=== PATIENT | female | born 1980 | race Two or more races ===

== ENCOUNTER 2025-03-01 18:58 | Inpatient (IN) | payer MEDICAID, SELFPAY ==
[2025-03-01] VITALS (9 sets, daily range): BP systolic 106–146; BP diastolic 72–95; PULSE 88–140; RESP 18–24; TEMP 36.9–39.3; O2SAT 97–99; BMI 27.2
--- NOTE | 2025-03-01 19:22 | XR_ITS ---
Examination: PA lateral chest 2 views Technique: Upright PA lateral chest 2 views Exam date and time: March 01, 20252003 hrs. Indications: Shortness of breath fever sepsis today Findings: Mild prominence left ventricle No pneumonia or pulmonary edema Moderate osteopenia Impression: No pneumonia or pulmonary edema
--- NOTE | 2025-03-01 19:22 | EKG_ITS ---
[facility] Test Date: 2025-03-01 Pat Name: JENNI HOWARD Department: Room: - Gender: Female Contribution Solicitor: : 1980 Requested By: Antonino Vargas Order Number: [id number] Reading MD: Antonino Vargas Measurements Intervals Hernandez Rate: 139 P: 53 TX: 126 QRS: 17 QRSD: 81 T: 23 QT: 314 QTc: 478 Interpretive Statements SINUS TACHYCARDIA MODERATE ST DEPRESSION [0.05+ mV ST DEPRESSION] Compared to ECG 02/09/2019 13:28:25 ST (T wave) deviation now present Sinus rhythm no longer present /store/S0/[id number]/[id number]
--- NOTE | 2025-03-01 19:27 | EDRME_ITS ---
Rapid Medical Screening Exam RME Arrival date/time: 03/01/25 18:58 45 yo f present to ED for c/o sob, headache, heart palpitation. had some alcohol at [place]. I have greeted and performed a focused initial assessment of this patient. A comprehensive ED assessment and evaluation of the patient, analysis of all test results, and completion of the medical decision making process will be conducted by additional ED providers. Chief Complaint: Dizziness Time Seen by Provider: 03/01/25 19:17 Vital signs: Vital Signs Temperature 102.8 F H 03/01/25 19:21 Pulse Rate 140 H 03/01/25 19:21 Respiratory Rate 20 03/01/25 19:21 Blood Pressure 145/92 H 03/01/25 19:21 Pulse Oximetry (%) 98 03/01/25 19:21 Oxygen Delivery Method CPAP 03/01/25 19:21
[2025-03-01] MEDS: ACETAMINOPHEN 500 MG TABLET 1000 MG PO (19:34)
[2025-03-01 19:45] LABS: Collection Type, Urine Clean Catch
[2025-03-01 19:53] LABS: Bilirubin,Urine Negative (Negative); Blood,Urine Negative (Negative); Clarity,Urine Clear (Clear/Hazy); Color,Urine Lt-Yellow (Lt Yel-Yel); Glucose, Urine 4+ (Negative); Ketones,Urine Trace (Negative); Leukocyte Esterase,Urine Negative (Negative); Nitrite,Urine Negative (Negative); PH,Urine 5.5 (5.0-7.0); Protein,Urine Negative (Neg - Trace); RBC,Urine 1 /hpf (0-3); Specific Gravity,Urine 1.019 (1.001-1.035); Squamous Epithelial Cell,Urine 1 /hpf (0-5); Urobilinogen,Urine Negative mg/dL (0.0-1.0); WBC,Urine 2 /hpf (0-5)
[2025-03-01 20:05] LABS: Lactate (Lactic Acid) 2.4 mMol/L (0.4-2.0)
[2025-03-01 20:06] LABS: Basophils % (Auto) 0 % (0-2.5); Eosinophils # (Auto) 0.1 Thou/mm3 (0.0-0.5); Eosinophils % (Auto) 0 % (0-10); Hematocrit 40.8 % (36.0-46.0); Hemoglobin 14.6 g/dL (12.0-16.0); Immature Granulocytes % (Auto) 1 % (0-0); Immature Granulocytes Auto 0.09 Thou/mm3 (0.00-0.00); Lymphocytes # (Auto) 1.3 Thou/mm3 (1.0-4.8); Lymphocytes % (Auto) 8 % (10-50); Mean Corpuscular HGB Conc 35.8 g/dl (31.0-37.0); Mean Corpuscular Hemoglobin 28.6 pg (25.0-35.0); Mean Corpuscular Volume 80 fL (80-100); Monocytes # (Auto) 0.7 Thou/mm3 (0.0-0.8); Monocytes % (Auto) 4 % (0-12); Neutrophils % (Auto) 87 % (37-80); Nucleated Red Blood Cell % 0 /100 WBC (0); Platelet Count 300 Thou/mm3 (140-440); White Blood Count 17.2 Thou/mm3 (3.6-11.0)
[2025-03-01 20:21] LABS: Partial Thromboplastin Time 27.1 Seconds (22.0-36.0); Prothrombin Time 11.4 Seconds (9.0-12.2)
[2025-03-01 20:29] LABS: B-Type Natriuretic Peptide < 20 pg/mL (0-100)
--- NOTE | 2025-03-01 20:40 | PD.EDDIZZY ---
ED Dizzyness RME/HPI General Chief Complaint: Dizziness Stated Complaint: DIZZY, HEART IS BEATING FAST , HEADACHE Time Seen by Provider: 03/01/25 19:17 Arrival date/time: 03/01/25 18:58 RME / HPI RME / HPI Narrative: 03/01/25 18:58 45 yo f present to ED for c/o sob, headache, heart palpitation. had some alcohol at [employer]. I have greeted and performed a focused initial assessment of this patient. A comprehensive ED assessment and evaluation of the patient, analysis of all test results, and completion of the medical decision making process will be conducted by additional ED providers. This section includes all my notes and documentations, including HPI, PE, and ED course. Chris Ahuja MD HPI: 45 y/o female with Hx of Blood Transfusions, Chemotherapy, Radiation Therapy, Cervical Cancer (remission for almost 10 years) and SHx of Hysterectomy and Section (X3) presents to ED c/o dizziness, intermittent fever, cough, and heart palpitations x approximately 24 hours. Denies chest pain, abdominal pain, sore throat, or dysuria. Denies any recreational drug use. No other complaints. ROS: All negative except as documented in HPI. Physical Exam: General:? Alert and oriented.? Fever noted. Eyes:? Conjunctivae and lids clear.? EOMI.? PERRL. ENT:? No nasal congestion.? Pharynx normal.? Tympanic membrane normal bilaterally.??? Neck:? Supple.? Heart:? Sinus tachycardia noted. Lungs:? No respiratory distress.? Good air movement.? No rhonchi, wheezing, rales.?? Abdomen:? Soft and nontender.? Normal bowel sounds.? No distension.? No rebound or guarding.?? Back:? No CVA tenderness.?? Legs:? No clubbing, cyanosis, edema.? Skin:? Warm and dry.?? Neuro:? Alert and oriented X 3.? Cranial Nerves II-XII grossly intact.? No peripheral motor deficits. I reviewed all diagnostic test results. My interpretation of the EKG is: Sinus tachycardia (139 bpm) with V1 and V2 ST elevations. Discussed with Dr. Issa. No acute VA. Recommended admission for further care. My interpretation of the chest x-ray is NAD. My review of the chest/abdomen/pelvis CT report is NAD. My interpretation of the gallbladder US report is NAD. Blood tests and urine tests remarkable for WBC 17.2, K 3.1, LA 2.4, Glu 275. Covid/Influenza/RSV negative. At this point, diagnoses include Hyperglycemia, Hypokalemia, Sepsis, Bacteremia, Abnormal EKG. Treatment here included Rocephin, Tylenol, Metoprolol, Zofran, Potassium Chloride, Sodium Chloride (NS), MgSO4. I discussed the case with our food storeroom clerk and our hospitalist. About the presentation and exam and diagnostics and treatments here. And need of further care in the hospital. Will accept the patient. Chris Ahuja MD Related Data Home Medications ?Medication ?Instructions ?Recorded ?Confirmed lorazepam 0.5 mg tablet 0.5 mg PO BID #0 tabs 07/07/16 02/09/19 Previous Rx's ?Medication ?Instructions ?Recorded blood sugar diagnostic (Accutrend #50 ea 03/04/25 Glucose test strips) blood-glucose sensor (FreeStyle #1 ea 03/04/25 Li 3 Plus Sensor device) insulin glargine 100 unit/mL (3 5 unit (0.05 mL) subcut QPM 1 03/04/25 mL) subcutaneous pen (aglar month #1.5 mL KwikPen U-100 Insulin) lancets (Lancets,Ultra Thin) #100 ea 03/04/25 metformin 500 mg tablet 500 mg PO BIDWMEAL 1 month #60 tabs 03/04/25 needle (disp) 32 gauge 32 gauge x #100 ea 03/04/25/16 pen needle, diabetic 29 gauge x #100 ea 03/04/25 1/2 (Pen Needle) Allergies Allergy/AdvReac Type Severity Reaction Status Date / Time No Known Allergies Allergy Verified 03/01/25 19:04 Review of Systems Review of Systems Systems Reviewed: All systems reviewed, normal except as documented Narrative Review of Systems: Refer to HPI above. Past Medical History Past Medical History RESPIRATORY: Positive Pneumonia OTHER HISTORY: Positive Blood Transfusions, Chemotherapy, Radiation Therapy, Cancer and Cervical Cancer ( APPROX. 4 YRS. AGO ) Surgical History SURGICAL: Positive Hysterectomy and Section (X3) ED Exam Narrative Physical exam: Refer to HPI above. Course Quality Measures none Orders Category Date Time Status Bedside COVID-19 Antigen Test NOW Care 03/01/25 19:22 Completed Bedside Influenza A&B Antigen Test NOW Care 03/01/25 19:23 Completed COVID-19 Screening Questionnaire NOW Care 03/02/25 03:[address] Screening NOW Care 03/01/25 22:10 Completed Appliance Servicer STAT Care 03/01/25 19:22 Completed Continuous Pulse Oximetry STAT Care 03/01/25 19:22 Completed Decision to Admit X1 Care 03/02/25 03:30 Completed EKG (ED ONLY) *Do not use* NOW Care 03/01/25 19:22 Completed EKG (ED ONLY) *Do not use* NOW Care 03/01/25 21:55 Completed Insert IV NOW Care 03/01/25 19:22 Completed NPO STAT Care 03/01/25 19:22 Completed Strict Intake and Output Routine Care 03/01/25 19:22 Ordered Consult to Cardiology Stat Cons 03/01/25 22:[address] chest abdomen pelvis w Stat Exams 03/01/25 22:10 Completed EKG (ED Only) Stat Exams 03/01/25 19:22 Draft EKG (ED Only) Stat Exams 03/01/25 21:55 Draft US gall bladder Stat Exams 03/01/25 22:11 Completed XR chest 2V Stat Exams 03/01/25 19:22 Completed Alcohol, Blood Medical Stat Lab 03/01/25 19:40 Completed B-Type Natriuretic Peptide Stat Lab 03/01/25 19:40 Completed Blood Culture (Lab) Stat Lab 03/01/25 19:40 Results C-Reactive Protein Stat Lab 03/01/25 19:40 Completed CBC Stat Lab 03/01/25 19:40 Completed Comprehensive Metabolic Panel Stat Lab 03/01/25 19:40 Completed D-Dimer Stat Lab 03/01/25 19:40 Completed Drug Screen,Urine Stat Lab 03/01/25 19:38 Completed Free T4 (Free Thyroxine) Stat Lab 03/01/25 19:40 Completed HCG,Qualitative Serum Stat Lab 03/01/25 19:40 Completed Hemoglobin A1C [Glycohemoglobin w (eAG)] Stat Lab 03/02/25 00:00 Completed LDH (Lactate Dehydrogenase) Stat Lab 03/01/25 19:40 Completed Lactate (Lactic Acid) Stat Lab 03/01/25 19:40 Completed Lactic Acid, 3 HR Stat Lab 03/01/25 23:07 Completed Lipase Stat Lab 03/01/25 19:40 Completed Magnesium Stat Lab 03/01/25 19:40 Completed Partial Thromboplastin Time Stat Lab 03/01/25 19:40 Completed Phosphorous Stat Lab 03/01/25 19:40 Completed Procalcitonin Stat Lab 03/01/25 19:40 Completed Prothrombin Time with INR Stat Lab 03/01/25 19:40 Completed Sed Rate (ESR) Stat Lab 03/01/25 19:40 Completed Thyroid Stimulating Hormone Stat Lab 03/01/25 19:40 Completed Troponin I Stat Lab 03/01/25 19:40 Completed Urinalysis Stat Lab 03/01/25 20:42 Ordered Urine Culture Stat Lab 03/01/25 19:38 Completed Acetaminophen Tab [Tylenol ES Tab] Med 03/01/25 19:22 Discontinued 1,000 mg PO X1 ONE Insulin Regular Med 03/02/25 03:32 Discontinued 5 unit SC X1 ONE KCL 10% Liq UDC 15 ML Med 03/01/25 21:39 Discontinued 40 meq PO X1 ONE Ketorolac Inj [Toradol Inj] Med 03/01/25 19:50 Discontinued 30 mg IVP X1 ONE Magnesium Sulfate 1 gm Ivpb [Magnesium Sulfate Ivpb] Med 03/01/25 21:39 Discontinued 1 gm in 100 ml IV X1 Metoprolol Tartrate [Lopressor] Med 03/01/25 20:02 Discontinued 50 mg PO X1 ONE Ondansetron Inj [Zofran Inj] Med 03/01/25 20:40 Discontinued 4 mg IV X1 ONE Sodium Chloride 0.9% 1000 ml [Ns] 1,000 ml Med 03/01/25 19:23 Discontinued IV 999 mls/hr Sodium Chloride 0.9% 1000 ml [Ns] 1,000 ml Med 03/01/25 20:39 Discontinued IV 999 mls/hr cefTRIAXone [Rocephin] 1,000 mg Med 03/01/25 20:40 Discontinued SODIUM CHLORIDE 0.9% (Popper) [Ns 0.9% (P)] 50 ml IV X1 Vital Signs Vital signs: Vital Signs Temperature 102.8 F H 03/01/25 19:21 Pulse Rate 140 H 03/01/25 19:21 Respiratory Rate 20 03/01/25 19:21 Blood Pressure 145/92 H 03/01/25 19:21 Pulse Oximetry (%) 98 03/01/25 19:21 Oxygen Delivery Method Room Air 03/01/25 19:21 Dizziness MDM Narrative MDM Narrative:: Scribe Attestation: I, Bere Perez, am scribing for and in the presence of Dr. Ahuja. Provider Notation: Although this document has been carefully reviewed, there may still be some phonetic and other typographical errors. These errors are purely grammatical due to imperfections in the software program and should not be construed in any way to compromise the substance of the patient's medical care during this visit. 45 y/o female with Hx of Blood Transfusions, Chemotherapy, Radiation Therapy, Cervical Cancer and SHx of Hysterectomy and Section (X3) presents to ED c/o dizziness, intermittent fever, cough, and heart palpitations x approximately 24 hours. Patient took an allergy medication, nasal spray, and an energy drink yesterday prior to symptoms. Denies chest pain, abdominal pain, sore throat, or dysuria. Denies any recreational drug use. Patient data External records reviewed:: [facility] previous records (Prior ED records reviewed from 11/17/21. Patient was seen for Cyst of right ovary.) Clinical information provided by:: patient Social determinants that could affect healthcare access:: none Patient has the following chronic illnesses:: Blood Transfusions, Chemotherapy, Radiation Therapy, Cervical Cancer How is presenting disease/condition affected by chronic disease/condition?: exacerbated by Evaluation data The following diagnostics were reviewed and interpreted by me:: lab results, radiology exam(s) and EKG tracing(s) (My interpretation of the EKG is: Sinus tachycardia (139 bpm) with V1 and V2 ST elevations. Discussed with Dr. Issa. No acute VA.recommended admission for further care. Chris Ahuja MD) Lab and/or radiology exams considered but not ordered:: None Interpretation Summary: I reviewed all diagnostic test results. My interpretation of the EKG is: Sinus tachycardia (139 bpm) with V1 and V2 ST elevations. Discussed with Dr. Issa. No acute VA. Recommended admission for further care. My interpretation of the chest x-ray is NAD. My review of the chest/abdomen/pelvis CT report is NAD. My interpretation of the gallbladder US report is NAD. Blood tests and urine tests remarkable for WBC 17.2, K 3.1, LA 2.4, Glu 275. Covid/Influenza/RSV negative. Medications / Prescriptions Medications or Prescriptions considered but not ordered:: None Medication administrations:: Medication Administration History Discontinued Medications Acetaminophen (Acetaminophen 500 Mg Tablet) 1,000 mg PO X1 ONE Stop: 03/01/25 19:23 Last Admin: 03/01/25 19:34 Dose: 1,000 mg Documented By: MREI Acetaminophen (Acetaminophen 325 Mg Tablet) 650 mg PO Q6H PRN PRN Reason: Fever >101.5 Stop: 04/01/25 04:06 Last Admin: 03/02/25 17:35 Dose: 650 mg Documented By: Admin: 03/02/25 04:49 Dose: 650 mg Documented By: HARDY Acetaminophen (Acetaminophen 325 Mg Tablet) 650 mg PO Q6H PRN PRN Reason: PAIN SCALE 1-3 (mild Stop: 04/01/25 04:06 Acetaminophen (Acetaminophen 325 Mg Tablet) 650 mg PO Q6H PRN PRN Reason: Fever >100.4 Stop: 04/01/25 04:06 Dextrose (Dextrose 50%-Water Inj 50 Ml Syringe) 25 ml IV Q15MIN PRN PRN Reason: BG 50-70 responsive npo pt Stop: 04/01/25 04:06 Dextrose (Dextrose 50%-Water Inj 50 Ml Syringe) 50 ml IV Q15MIN PRN PRN Reason: BG <50 OR BG <70 & pt unresponsive Stop: 04/01/25 04:06 Enoxaparin Sodium (Enoxaparin Sod Inj 40 Mg/0.4 Ml Syringe) 40 mg SC QDAY ISREAL Stop: 03/16/25 08:59 Last Admin: 03/04/25 08:28 Dose: 40 mg Documented By: Admin: 03/03/25 08:31 Dose: 40 mg Documented By: Admin: 03/02/25 10:08 Dose: Not Given Documented By: BATSHEVA Non-Admin Reason: Patient Refused Glucagon (Glucagon Inj 1 Mg Vial) 1 mg IM Q15MIN PRN PRN Reason: BG <70, and no IV access Sodium Chloride (Ns) 1,000 mls @ 999 mls/hr IV .Q1H1M ONE Stop: 03/01/25 20:23 Last Infusion: 03/01/25 22:36 Dose: Infused Documented By: Admin: 03/01/25 20:46 Dose: 999 mls/hr Documented By: EE Sodium Chloride (Ns) 1,000 mls @ 999 mls/hr IV .Q1H1M ONE Stop: 03/01/25 21:39 Last Infusion: 03/01/25 22:36 Dose: Infused Documented By: Admin: 03/01/25 20:54 Dose: 999 mls/hr Documented By: EE Ceftriaxone Sodium 1,000 mg/ (Sodium Chloride) 50 mls @ 100 mls/hr IV X1 ONE Stop: 03/01/25 21:09 Last Infusion: 03/01/25 21:35 Dose: Infused Documented By: Admin: 03/01/25 20:53 Dose: 100 mls/hr Documented By: EE Magnesium Sulfate/Dextrose (Magnesium Sulfate Ivpb) 1 gm in 100 mls @ 100 mls/hr IV X1 ONE Stop: 03/01/25 22:38 Last Infusion: 03/01/25 23:32 Dose: Infused Documented By: Admin: 03/01/25 22:32 Dose: 100 mls/hr Documented By: EE Piperacillin/Tazobactam/Dextrose (Zosyn) 50 mls @ 100 mls/hr IV Q6HR ISREAL Stop: 03/09/25 04:11 Piperacillin/Tazobactam/Dextrose (Zosyn) 3.375 gm in 50 mls @ 12.5 mls/hr IV Q8HR ISREAL Stop: 03/09/25 13:59 Magnesium Sulfate (Magnesium Sulfate Ivpb) 4 gm in 50 mls @ 12.5 mls/hr IV X1 ONE Stop: 03/02/25 08:15 Last Infusion: 03/02/25 10:08 Dose: Infused Documented By: Admin: 03/02/25 04:53 Dose: 12.5 mls/hr Documented By: EE Potassium Phosphate (Pot Phos 15 Mmol In Ns 250 Ml) 15 mmol in 250 mls @ 62.5 mls/hr IV Q4H ISREAL Stop: 03/02/25 14:14 Piperacillin/Tazobactam/Dextrose (Zosyn) 3.375 gm in 50 mls @ 100 mls/hr IV X1 ONE Stop: 03/02/25 04:59 Last Infusion: 03/02/25 05:33 Dose: Infused Documented By: Admin: 03/02/25 04:37 Dose: 100 mls/hr Documented By: HARDY Vancomycin/Sodium Chloride (Vancomycin/Ns 1 Gm Ivpb) 200 mls @ 200 mls/hr IV X1 ONE Stop: 03/02/25 05:29 Last Infusion: 03/02/25 10:08 Dose: Infused Documented By: Admin: 03/02/25 04:52 Dose: 200 mls/hr Documented By: HARDY Potassium Phosphate (Pot Phos 15 Mmol In Ns 250 Ml) 15 mmol in 250 mls @ 62.5 mls/hr IV Q4H ISREAL Stop: 03/02/25 15:29 Last Infusion: 03/02/25 17:59 Dose: Infused Documented By: Admin: 03/02/25 13:09 Dose: 62.5 mls/hr Documented By: Infusion: 03/02/25 13:05 Dose: Infused Documented By: Admin: 03/02/25 08:39 Dose: 62.5 mls/hr Documented By: BATSHEVA Vancomycin/Sodium Chloride (Vancomycin/Ns 1 Gm Ivpb) 200 mls @ 120 mls/hr IV Q12H ISREAL Stop: 03/09/25 21:59 Ceftriaxone Sodium 1 gm/ (Sodium Chloride) 50 mls @ 100 mls/hr IV QDAY ISREAL Stop: 03/10/25 08:59 Potassium Chloride (Kcl Ivpb) 10 meq in 100 mls @ 100 mls/hr IV Q1H ISREAL Stop: 03/02/25 19:28 Last Infusion: 03/02/25 18:39 Dose: Infused Documented By: Admin: 03/02/25 17:58 Dose: Not Given Documented By: BATSHEVA Non-Admin Reason: Discontinued Admin: 03/02/25 17:58 Dose: Not Given Documented By: BATSHEVA Non-Admin Reason: Discontinued Admin: 03/02/25 17:35 Dose: 100 mls/hr Documented By: BATSHEVA Potassium Phosphate (Pot Phos 15 Mmol In Ns 250 Ml) 15 mmol in 250 mls @ 62.5 mls/hr IV X1 ONE Stop: 03/03/25 12:02 Last Infusion: 03/03/25 19:09 Dose: Infused Documented By: Admin: 03/03/25 08:31 Dose: 62.5 mls/hr Documented By: ADELINA Ceftriaxone Sodium/Dextrose (Rocephin/D5w 1gm Iv Premix) 1 gm in 50 mls @ 100 mls/hr IV QDAY ISREAL Stop: 03/10/25 08:59 Last Admin: 03/04/25 08:25 Dose: 100 mls/hr Documented By: Infusion: 03/03/25 19:08 Dose: Infused Documented By: Admin: 03/03/25 08:30 Dose: 100 mls/hr Documented By: ADELINA Insulin Glargine (Insulin Glargine (Lantus) 5 Unit/0.05 Ml (Per 5 Units)) 5 unit SC QDAY ISREAL Stop: 04/02/25 08:59 Insulin Glargine (Insulin Glargine (Lantus) 5 Unit/0.05 Ml (Per 5 Units)) 3 unit SC QDAY ISREAL Stop: 04/02/25 08:59 Last Admin: 03/04/25 08:27 Dose: 3 unit Documented By: BENOIT Co-signed By: Admin: 03/03/25 08:31 Dose: 3 unit Documented By: ADELINA Co-signed By: CARMEN Insulin Human Lispro (Insulin Lispro (Admelog) 1 Unit/0.01 Ml Unit) 0 unit SC AC [facility]; Protocol Stop: 04/01/25 07:29 Last Admin: 03/04/25 18:16 Dose: 2 unit Documented By: BENOIT Co-signed By: MARISA Admin: 03/04/25 11:59 Dose: Not Given Documented By: BENOIT Non-Admin Reason: Patient Refused Admin: 03/04/25 08:23 Dose: 2 unit Documented By: BENOIT Co-signed By: Admin: 03/03/25 17:29 Dose: 1 unit Documented By: ADELINA Co-signed By: PARI Admin: 03/03/25 11:26 Dose: 2 unit Documented By: ADELINA Co-signed By: CARMEN Admin: 03/03/25 08:30 Dose: 1 unit Documented By: ADELINA Co-signed By: CARMEN Admin: 03/02/25 17:34 Dose: Not Given Documented By: BATSHEVA Non-Admin Reason: Per Protocol Admin: 03/02/25 12:38 Dose: Not Given Documented By: BATSHEVA Non-Admin Reason: Per Protocol Admin: 03/02/25 07:55 Dose: Not Given Documented By: BATSHEVA Non-Admin Reason: Per Protocol Insulin Human Regular (Insulin Hum Regular 1 Unit/0.01 Ml (Per Unit)) 5 unit SC X1 ONE Stop: 03/02/25 03:33 Last Admin: 03/02/25 03:53 Dose: 5 unit Documented By: HARDY Co-signed By: TERRY Ketorolac Tromethamine (Ketorolac Inj 30 Mg/Ml Vial) 30 mg IVP X1 ONE Stop: 03/01/25 19:51 Last Admin: 03/01/25 20:46 Dose: 30 mg Documented By: HARDY Metoprolol Tartrate (Metoprolol Tartrate 25 Mg Tablet) 50 mg PO X1 ONE Stop: 03/01/25 20:03 Last Admin: 03/01/25 20:47 Dose: 50 mg Documented By: HARDY Ondansetron HCl (Ondansetron Inj 2 Mg/Ml Inj 2 Ml) 4 mg IV X1 ONE; Protocol Stop: 03/01/25 20:41 Last Admin: 03/01/25 20:53 Dose: 4 mg Documented By: HARDY Pharmacy Consult (Vancomycin Pharmacy To Dose 1 Each Each) 1 each IV QDAY ISREAL Stop: 04/01/25 08:59 Pharmacy Consult (Vancomycin Pharmacy To Dose 1 Each Each) 1 each IV Q24H PRN PRN Reason: CONSULT Stop: 04/01/25 04:14 Potassium Chloride (Potassium Chloride 10% 20 Meq/15 Ml Udc) 40 meq PO X1 ONE Stop: 03/01/25 21:40 Last Admin: 03/01/25 22:32 Dose: 40 meq Documented By: HARDY Potassium Chloride (Potassium Chloride 10% 20 Meq/15 Ml Udc) 40 meq PO X1 ONE Stop: 03/02/25 17:44 Last Admin: 03/02/25 18:09 Dose: 40 meq Documented By: BATSHEVA Potassium Chloride (Potassium Chloride 20 Meq Tabcr) 20 meq PO X1 ONE Stop: 03/02/25 19:01 Last Admin: 03/02/25 18:30 Dose: 20 meq Documented By: BATSHEVA From ut, she received Rocephin, Tylenol, Metoprolol, Zofran, Potassium Chloride, Sodium Chloride (NS), MgSO4 in the ER. Consultations Consultation(s) initiated? (list below): Yes Consultation #1 (Physician, Specialty, Details): I discussed the case with our food storeroom clerk. About the presentation and exam and diagnostics and treatments here. And need of further care in the hospital. Recommended admission for further care. Time: 03:31 Diagnosis Dizziness Differential Diagnosis: adverse reaction to drug, benign paroxysmal positional vertigo, orthostatic hypotension, vertebral basilar insufficiency, cerebrovascular accident, acute vestibular neuronitis, transient cerebral ischemia and other (UTI, Pneumonia, Sepsis) Most likely diagnosis given after review of the tests above:: Sepsis, bacteremia, abnormal EKG, Hyperglycemia, Hypokalemia Admission Indicated Admission indicated?: indicated Explain why admission is indicated or not indicated:: Further evaluation and treatment for: sepsis, bacteremia, abnormal EKG. Admission Request Was there a request for admission?: Yes Admission Attestation Admission request attestation: Discussed case with Hospitalist service regarding admission. Discussed patients ED course, exam findings, labs, and radiology results. The Hospitalist [agrees] to accept the patient for admission. Disposition Plan Disposition Plan: Admit Discharge Plan Plan Patient Disposition: Admit Acute Care w/in Hospital Patient condition on transfer: Stable Problem List Clinical Impression: Sepsis, Bacteremia, Abnormal EKG, Hypokalemia, Hyperglycemia Patient/Caregiver Discharge Instructions Discharge Activity: activity as tolerated
[2025-03-01 20:45] LABS: HCG,Qualitative Serum Negative
[2025-03-01] MEDS: KETOROLAC INJ 30 MG/ML VIAL IVP (20:46)
[2025-03-01] MEDS: SODIUM CHLORIDE 0.9% 1000 ML 1,000 ML 999 ML IV ×2 (20:46→20:54)
[2025-03-01] MEDS: METOPROLOL TARTRATE 25 MG TABLET 50 MG PO (20:47)
[2025-03-01] MEDS: ONDANSETRON INJ 2 MG/ML INJ 2 ML 4 MG IV (20:53)
[2025-03-01] MEDS: cefTRIAXone 1,000 MG in SODIUM CHLORIDE 0.9% (Popper) 50 ML 100 MG IV (20:53)
[2025-03-01 21:20] LABS: Sed Rate (ESR) 22 mm/hr (0-20)
[2025-03-01 21:36] LABS: Alanine Aminotransferase 31 U/L (10-49); Albumin, Serum 4.7 gm/dL (3.5-5.0); Albumin/Globulin Ratio 1.7 (1.2-2.2); Alkaline Phosphatase 137 U/L (46-116); Anion Gap 12 (7-16); Aspartate Amino Transferase 22 U/L (0-34); BUN/Creatinine Ratio 13 Ratio (12-20); Bilirubin,Total 0.5 mg/dL (0.3-1.2); Blood Urea Nitrogen 13 mg/dL (9-23); C-Reactive Protein 2.4 mg/dL (0.0-0.9); Calcium 9.4 mg/dL (8.3-10.6); Calcium (Corrected) 9.4 mg/dL (8.5-10.1); Carbon Dioxide 23.2 mMol/L (20.0-31.0); Chloride 102 mMol/L (98-107); Estimated Creatinine Clearance 78.7 mL/min (>60); Free T4 (Free Thyroxine) 1.09 ng/dL (0.89-1.76); Globulin 2.8 gm/dL (2.3-3.5); Glucose 275 mg/dL (74-106); LDH (Lactate Dehydrogenase) 273 U/L (120-246); Lipase 40 U/L (12-53); Magnesium 1.6 mg/dL (1.6-2.6); Osmolality,Calculated 283 (275-295); Phosphorous 1.9 mg/dL (2.4-5.1); Potassium 3.1 mMol/L (3.4-5.1); Procalcitonin 0.32 ng/ml (0.0-0.49); Sodium 137 mMol/L (136-145); Thyroid Stimulating Hormone 2.13 uIU/mL (0.55-4.78); Total Protein 7.5 gm/dL (5.7-8.2); Troponin I < 0.002 ng/mL (0.0-0.045); eGFR > 60 See Note
[2025-03-01 21:41] LABS: D-Dimer 391 ng/mL (<600)
[2025-03-01 21:55] LABS: Alcohol, Blood Medical < 3.0 mg/dL (0-10.0)
--- NOTE | 2025-03-01 21:55 | EKG_ITS ---
[facility] Test Date: 2025-03-01 Pat Name: JENNI HOWARD Department: Room: - Gender: Female Family Medicine Physician Assistant: : 1980 Requested By: Chris Sanford Order Number: [id number] Reading MD: Chris Sanford Measurements Intervals [place] Rate: 98 P: 42 NH: 100 QRS: 22 QRSD: 97 T: 20 QT: 367 QTc: 469 Interpretive Statements SINUS RHYTHM WITH SHORT NH INTERVAL NONSPECIFIC T-WAVE ABNORMALITY Compared to ECG 03/01/2025 19:29:13 Short NH interval now present T-wave abnormality now present Sinus tachycardia no longer present ST (T wave) deviation no longer present /store/S0/[id number]/[id number]
--- NOTE | 2025-03-01 22:10 | XR_ITS ---
Examination: CT chest with intravenous contrast CT abdomen with intravenous contrast CT pelvis with intravenous contrast 2-D coronal and sagittal reconstructions Time of exam: March 02, 2025 at 0041 hours INDICATIONS: Diagnosis malignant vaginal cancer, tachycardia, headaches fever abdominal and chest pain today CTDI: vol (mGy) : 8.24 DLP: (mGycm): 591 Technique: Multiple axial images of the chest, abdomen and pelvis with intravenous contrast, 3.0 mm slice thickness. Images obtained post intravenous injection Isovue 370 60 cc. 2-D sagittal and coronal reconstructions. Low dose protocols were performed. One or more of the following dose reduction techniques were used; automated exposure control, adjustment of the mA and/or KV according to patient size, use of iterative reconstruction technique. Findings: Thoracic aorta pulmonary arteries intact No pulmonary artery emboli on this non-CTA study No paratracheal tracheobronchial or bronchopulmonary adenopathy 2 mm pulmonary nodule lingular segment image 157 Fatty infiltration throughout the liver no focal liver or splenic lesions Contracted gallbladder No pancreatic or adrenal mass Mild bilateral renal parenchymal scar formation Mild right hydronephrosis with mild wall thickening right ureter No bowel obstruction Normal appendix No diverticulitis Absent uterus No bladder mass Thickening of the umbilical tract with skin lesion 18 mm IMPRESSION: 2 mm pulmonary nodule lingular segment left upper lobe, with this study as baseline recommend 6 month follow-up CT chest to exclude early pulmonary nodular metastatic disease Bilateral renal parenchymal scar formation Findings most consistent with right urinary tract infection Recommend ultrasound follow-up to assess umbilical skin lesion
--- NOTE | 2025-03-01 22:11 | XR_ITS ---
Examination: Abdomen sonogram, Limited Date and time of exam: March 01, 2025 1114 hrs. Indications: Right upper abdominal tenderness today Technique: Real-time carballo scale transabdominal sonographic images of the upper abdomen obtained. Findings: Contracted gallbladder Common bile duct 0.42 cm Pancreatic head 3.2 cm Liver 18 cm fatty infiltration Normal hepatopedal portal venous flow Patent IVC Impression: Recommend repeating the gallbladder portion of this study with fasting
[2025-03-01] MEDS: POTASSIUM CHLORIDE 10% 20 MEQ/15 ML UDC 40 MEQ PO (22:32)
[2025-03-01] MEDS: Magnesium Sulfate 1 gm Ivpb 1 GM/100 ML BAG IV (22:32)
[2025-03-01 22:45] LABS: Amphetamine/Methamp Scrn,U Negative (Negative); Barbiturate Screen,Urine Negative (Negative); Benzodiazepines Screen,Urine Negative (Negative); Benzoylecgonine Screen, Ur Negative (Negative); Fentanyl Screen,Urine Negative (Negative); Opiate Screen,Urine Negative (Negative)
[2025-03-01 22:47] LABS: THC Screen,Urine Negative (Negative)
[2025-03-01 22:52] LABS: Reflex Lactate? Y
[2025-03-01 23:28] LABS: Lactic Acid, 3 HR 1.3 mMol/L (0.4-2.0)
[2025-03-02] VITALS (16 sets, daily range): BP systolic 113–146; BP diastolic 71–98; PULSE 82–106; RESP 13–19; TEMP 36.2–39.5; O2SAT 96–100
--- NOTE | 2025-03-02 01:56 | PRELIM_ITS ---
CT scan of the chest, abdomen and pelvis with intravenous contrast (axial sections with sagittal and coronal reformats) March 02, 2025 at 0041 hours Clinical History: Fever and pain (history of [facility] cancer) Reference is made to the prior CT Abdomen and Pelvis report dated November 17, 2021. Findings: Bibasilar streaky atelectasis is present. There is no pleural effusion or pneumothorax. The aorta is unremarkable without evidence of dissection or aneurysm. No evidence of mediastinal mass or lymphadenopathy. There is no pericardial effusion.Surgical clips are noted in the right breast. There is fatty infiltration of the liver. The gallbladder is partially distended. Mild right hydroureteronephrosis No ureteric calculus is currently seen. The spleen, pancreas, adrenals and left kidney are unremarkable. T No evidence of bowel dilatation. The appendix is within normal limits. The urinary bladder is not well distended with apparent wall thickening. There is no free fluid or air. The osseous structures are unremarkable. This is a homogenously enhancing superficial cutaneous lesion in the umbilical region, measuring 2 x 2.1 x 2.8 cm (AP x TR x CC) of uncertain clinical significance. Impression: Mild right hydroureteronephrosis No ureteric calculus is currently seen. Differential considerations include recently passed calculus versus urinary infection. Recommend clinical correlation. Probable cystitis. Recommend clinical and laboratory correlation. Homogenously enhancing superficial cutaneous lesion in the umbilical region of uncertain clinical significance. Recommend clinical correlation. Other findings as described above. Report Electronically Signed By: Terell Duggan 03/02/2025 1:56:02 AM [EST]
[2025-03-02] MEDS: INSULIN HUM REGULAR 1 UNIT/0.01 ML (PER UNIT) 5 UNIT SC (03:53)
--- NOTE | 2025-03-02 04:19 | PD.RESHP ---
Documentation for date of: 03/02/25 [facility] History of Present Illness History of present illness: The patient is a 45-year-old female with significant past medical history of vaginal cancer in 2016, currently in remission, unknown about any other past medical history presented with chief complaint of fever, mild headache and palpitation that started on the morning of presentation. She reported that she had some energy drink, and after which her palpitation increased. She denied any sick contact, sore throat, nasal congestion, cough, chest pain, SOB, abdominal pain, any changes in bowel or bladder habit, denying any urinary frequency, burning micturition or dysuria. She also denied any nausea or vomiting, chills or leg swelling. In the ED her vitals were significant for BP 145/92, pulse 140, temperature 102.8, white count 17.2, RDW 36.0, ESR 22, potassium 3.1, blood sugar 275, lactic acid 2.4, phosphorus 1.9, ALP 137, LDH 237, troponin negative, CRP 2.4, Pro-Reyes negative, TSH and free T4 WNL, UA revealed 4+ glucose otherwise negative, U tox negative, CXR negative for any pneumonia, EKG revealed sinus tachycardia with moderate ST depression, chest/abdomen/pelvis CT was negative, gallbladder ultrasound was negative. [employer] Dr. Issa was consulted, and believes that it is not ACS, recommended admitting the patient, and would see her tomorrow morning. PMH: As mentioned above SHX: Hysterectomy oophorectomy, 3 section around 24 years ago Family history: Unremarkable Social history: Denies any alcohol, tobacco or illicit drug use Medications: Denies any medications use Allergies: No known allergies Patient received 2 L of IV normal saline bolus in the ED, given a seven 1 g p.o. x 1, ceftriaxone 1 g IV x 1, ondansetron 4 mg IV x 1, potassium chloride 40 mEq p.o. x 1, regular insulin subcutaneous x 1 and magnesium sulfate 1 g IV x 1 and admitted to telemetry unit for further management of possible bacteremia. Review of Systems Review of Systems Systems Reviewed: All systems reviewed, normal except as documented Exam Vital Signs Temp Pulse Resp BP Pulse Ox O2 Del Method 98.7 F 90 15 145/92 H 100 Room Air 03/02/25 04:00 03/02/25 04:00 03/02/25 04:00 03/02/25 04:00 03/02/25 04:00 03/02/25 04:00 Narrative Exam General: Middle-aged, well-nourished female, no acute distress, Alert and Oriented x 3 HEENT: Moist mucous membranes, oropharynx clear Neck: Supple, No masses, No JVD CVS: Mild tachycardia, No murmurs, rubs or gallops Lungs: Clear to auscultation with no accessory use, no wheeze no rhonchi Abd: Soft, NT/ND, +BS, no organomegaly, hypertrophic scar kassie in lower central abdomen 2/2 CS Ext: No edema, warm and well perfused Skin: No rash Psych: Appropriate mood and affect Results: Labs 03/01/25 19:40 03/01/25 19:40 Labs: Short CBC 03/01/25 Range/Units 19:40 WBC 17.2 H (3.6-11.0) Thou/mm3 Hgb 14.6 (12.0-16.0) g/dL Hct 40.8 (36.0-46.0) % Plt Count 300 (140-440) Thou/mm3 BMP 03/01/25 19:40 Sodium 137 Potassium 3.1 L Chloride 102 Carbon Dioxide 23.2 BUN 13 Creatinine 1.0 Glucose 275 H Calcium 9.4 Cardiac Enzymes 03/01/25 Range/Units 19:40 Troponin I < 0.002 (0.0-0.045) ng/mL Liver Function 03/01/25 Range/Units 19:40 Total Bilirubin 0.5 (0.3-1.2) mg/dL AST 22 (0-34) U/L ALT 31 (10-49) U/L Alkaline Phosphatase 137 H (46-116) U/L Albumin 4.7 (3.5-5.0) gm/dL Urine 03/01/25 Range/Units 19:38 Urine Color Lt-Yellow (Lt Yel-Yel) Urine Clarity Clear (Clear/Hazy) Urine pH 5.5 (5.0-7.0) Ur Specific Mcgrew 1.019 (1.001-1.035) Urine Protein Negative (Neg - Trace) Urine Glucose (UA) 4+ A (Negative) Quality Measures Quality Measures none Medications Home Medications and Allergies Home Medications ?Medication ?Instructions ?Recorded ?Confirmed ?Type lorazepam 0.5 mg tablet 0.5 mg PO BID #0 tabs 07/07/16 02/09/19 History Allergies Allergy/AdvReac Type Severity Reaction Status Date / Time No Known Allergies Allergy Verified 03/01/25 19:04 Visit Medications Acetaminophen (Acetaminophen 325 Mg Tablet) 650 mg PO Q6H PRN PRN Reason: Fever >101.5 Stop: 04/01/25 04:06 Acetaminophen (Acetaminophen 325 Mg Tablet) 650 mg PO Q6H PRN PRN Reason: PAIN SCALE 1-3 (mild Stop: 04/01/25 04:06 Dextrose (Dextrose 50%-Water Inj 50 Ml Syringe) 25 ml IV Q15MIN PRN PRN Reason: BG 50-70 responsive npo pt Stop: 04/01/25 04:06 Dextrose (Dextrose 50%-Water Inj 50 Ml Syringe) 50 ml IV Q15MIN PRN PRN Reason: BG <50 OR BG <70 & pt unresponsive Stop: 04/01/25 04:06 Enoxaparin Sodium (Enoxaparin Sod Inj 40 Mg/0.4 Ml Syringe) 40 mg SC QDAY [facility] Stop: 03/16/25 08:59 Glucagon (Glucagon Inj 1 Mg Vial) 1 mg IM Q15MIN PRN PRN Reason: BG <70, and no IV access Piperacillin/Tazobactam/Dextrose (Zosyn) 50 mls @ 100 mls/hr IV Q6H [facility] Stop: 03/09/25 04:14 Magnesium Sulfate (Magnesium Sulfate Ivpb) 4 gm in 50 mls @ 12.5 mls/hr IV X1 ONE Stop: 03/02/25 08:15 Potassium Phosphate (Pot Phos 15 Mmol In Ns 250 Ml) 15 mmol in 250 mls @ 62.5 mls/hr IV Q4H [facility] Stop: 03/02/25 12:15 Insulin Human Lispro (Insulin Lispro (Admelog) 1 Unit/0.01 Ml Unit) 0 unit SC AC [facility]; Protocol Stop: 04/01/25 07:29 Pharmacy Consult (Vancomycin Pharmacy To Dose 1 Each Each) 1 each IV Q24H [facility] Stop: 04/01/25 04:14 Discontinued Medications Acetaminophen (Acetaminophen 500 Mg Tablet) 1,000 mg PO X1 ONE Stop: 03/01/25 19:23 Last Admin: 03/01/25 19:34 Dose: 1,000 mg Sodium Chloride (Ns) 1,000 mls @ 999 mls/hr IV .Q1H1M ONE Stop: 03/01/25 20:23 Last Infusion: 03/01/25 22:36 Dose: Infused Sodium Chloride (Ns) 1,000 mls @ 999 mls/hr IV .Q1H1M ONE Stop: 03/01/25 21:39 Last Infusion: 03/01/25 22:36 Dose: Infused Ceftriaxone Sodium 1,000 mg/ (Sodium Chloride) 50 mls @ 100 mls/hr IV X1 ONE Stop: 03/01/25 21:09 Last Infusion: 03/01/25 21:35 Dose: Infused Magnesium Sulfate/Dextrose (Magnesium Sulfate Ivpb) 1 gm in 100 mls @ 100 mls/hr IV X1 ONE Stop: 03/01/25 22:38 Last Infusion: 03/01/25 23:32 Dose: Infused Piperacillin/Tazobactam/Dextrose (Zosyn) 50 mls @ 100 mls/hr IV Q6HR [facility] Stop: 03/09/25 04:11 Insulin Human Regular (Insulin Hum Regular 1 Unit/0.01 Ml (Per Unit)) 5 unit SC X1 ONE Stop: 03/02/25 03:33 Last Admin: 03/02/25 03:53 Dose: 5 unit Ketorolac Tromethamine (Ketorolac Inj 30 Mg/Ml Vial) 30 mg IVP X1 ONE Stop: 03/01/25 19:51 Last Admin: 03/01/25 20:46 Dose: 30 mg Metoprolol Tartrate (Metoprolol Tartrate 25 Mg Tablet) 50 mg PO X1 ONE Stop: 03/01/25 20:03 Last Admin: 03/01/25 20:47 Dose: 50 mg Ondansetron HCl (Ondansetron Inj 2 Mg/Ml Inj 2 Ml) 4 mg IV X1 ONE; Protocol Stop: 03/01/25 20:41 Last Admin: 03/01/25 20:53 Dose: 4 mg Pharmacy Consult (Vancomycin Pharmacy To Dose 1 Each Each) 1 each IV QDAY [facility] Stop: 04/01/25 08:59 Potassium Chloride (Potassium Chloride 10% 20 Meq/15 Ml Udc) 40 meq PO X1 ONE Stop: 03/01/25 21:40 Last Admin: 03/01/25 22:32 Dose: 40 meq Assessment & Plan Plan The patient is a 45-year-old female with significant past medical history of vaginal cancer in 2016, currently in remission, unknown about any other past medical history presented with chief complaint of fever, mild headache and palpitation that started on the morning of presentation. The patient was admitted to telemetry unit for further management of possible bacteremia. #Sepsis Rule Out #3/4 SIRS positive #Lactic acidosis Patient presented with chief complaint of fever, mild headache and palpitation for 1 day She denied any sick contact, sore throat, nasal congestion, cough, chest pain, SOB, abdominal pain, any changes in bowel or bladder habit, denying any urinary frequency, burning micturition or dysuria. She also denied any nausea or vomiting, chills or leg swelling. Presented with pulse 140, temperature 102.8, white count 17.2, ESR 22, lactic acid 2.4, phosphorus 1.9, ALP 137, LDH 237, CRP 2.4, Pro-Reyes negative, TSH and free T4 WNL, UA revealed 4+ glucose otherwise negative, U tox negative, CXR negative for any pneumonia, EKG revealed sinus tachycardia with moderate ST depression, chest/abdomen/pelvis CT was negative, gallbladder ultrasound was negative. COVID-19, influenza A and B were negative Patient received 2 L of IV normal saline bolus in the ED, given a seven 1 g p.o. x 1, ceftriaxone 1 g IV x 1, ondansetron 4 mg IV x 1 in the ED - Admitted to telemetry unit - Started on vancomycin and Zosyn- 03/02/2025 - Blood and urine culture ordered, follow-up with results - Lactic acid trended down to 1.9 - Daily a.m. labs for CBC, CMP and electrolytes - Ordered RSV - Monitor closely #Hypokalemia #Hypophosphatemia Patient presented with potassium of 3.1 and phosphorus of 1.9 - Received 40 mEq p.o. KCl in the ED - Ordered 30 mmol of potassium phosphate IV x 1 - Ordered magnesium sulfate 4 g IV x 1 - Repeat lab for electrolytes at 1 PM, follow-up and replete as needed -Daily a.m. labs for electrolytes Health maintenance: Dispo: Patient admitted to telemetry unit for further management of possible bacteria and 2/3 SIRS positive DVT prophylaxis: Eliquis 40 Mg subcu daily Diet: Carb consistent diet CODE STATUS: Full code The patient's management plan was discussed with my attending physician MD Stevie Green MD, PGY2 Attending Provider Attestation/Addendum I have examined the patient, reviewed labs and imaging findings, discussed the case with the resident(s), and reviewed entered orders. I agree with the plan of care as outlined in this note, with these additional summaries/recommendations: Patient is a 45-year-old female with a medical history of vaginal neoplasm status post chemotherapy, radiation, and hysterectomy, blood transfusions, DMII, and allergies who presents to [facility] emergency department on 03/01/2025 with relatively nonspecific complaints of fever, cough, dizziness and palpitations. Patient seen at bedside. She denies chest pain, abdominal pain, sore throat, diarrhea, earache, headache/neck stiffness, and no recent sick contacts. Yesterday patient reports she had an energy drink and took her allergy medication. She denies sinus pain and nasal discharge. On admission patient was found to have Tmax 102.8 Fahrenheit, pulse 140, RR 20, BP 145/92 with lactic acid 2.4 & WBC 17.2. Patient meets SIRS criteria and will be admitted for sepsis rule out. Source unknown at this time. Blood and urine cultures taken in the ED, follow-up results when available. Start broad-spectrum IV antibiotics. CT abdomen and pelvis showed mild right Mild right hydroureteronephrosis possibly indicative of passed stone versus urinary tract infection although patient has no flank pain or urinary symptoms to report at this time. CT scan showed homogenously enhancing superficial cutaneous lesion in the umbilical region 2 X 2.1 X 2.8 cm which I feel represents eschar scarring from previous surgeries approximately 20 years ago. No tenderness to palpation in the lower abdominal area. Order flu, COVID, and cocci. Lactic acidosis present on admission and resolved with IV fluids. Hypokalemia and hypophosphatemia present on chemistry panel and replacement given. Of note patient reports she was drinking energy drinks yesterday although less likely this contributed. Start insulin sliding scale for diabetes mellitus type 2. Diabetic diet. hCG negative. Patient updated on the plan and in agreement. All questions answered to satisfaction. Please see residents note for additional details and management. Dr. Nico MD
[2025-03-02 04:22] LABS: Glucose Estimated Average 240 mg/dL (80-131)
[2025-03-02] MEDS: PIPER/TAZO 3.375 GM PREMIX 3.375 GM/50 ML BAG IV (04:37)
[2025-03-02] MEDS: ACETAMINOPHEN 325 MG TABLET 650 MG PO ×2 (04:49→17:35)
[2025-03-02] MEDS: VANCOMYCIN/NS 1 GM IVPB 200 ML IV (04:52)
[2025-03-02] MEDS: Magnesium Sulfate 4 GM Ivpb 4 GM/50 ML BAG IV (04:53)
[2025-03-02 05:13] LABS: Basophils % (Auto) 0 % (0-2.5); Eosinophils % (Auto) 0 % (0-10); Hematocrit 41.5 % (36.0-46.0); Hemoglobin 14.5 g/dL (12.0-16.0); Immature Granulocytes % (Auto) 0 % (0-0); Immature Granulocytes Auto 0.05 Thou/mm3 (0.00-0.00); Lymphocytes # (Auto) 1.2 Thou/mm3 (1.0-4.8); Lymphocytes % (Auto) 10 % (10-50); Mean Corpuscular HGB Conc 34.9 g/dl (31.0-37.0); Mean Corpuscular Hemoglobin 28.9 pg (25.0-35.0); Mean Corpuscular Volume 83 fL (80-100); Monocytes # (Auto) 0.6 Thou/mm3 (0.0-0.8); Monocytes % (Auto) 5 % (0-12); Neutrophils # (Auto) 10.5 Thou/mm3 (1.8-7.7); Neutrophils % (Auto) 85 % (37-80); Nucleated Red Blood Cell % 0 /100 WBC (0); Platelet Count 241 Thou/mm3 (140-440); RDW Standard Deviation 38.2 fL (36.4-46.3); Red Blood Count 5.01 Miln/mm3 (4.00-5.20); White Blood Count 12.4 Thou/mm3 (3.6-11.0)
[2025-03-02 05:45] LABS: Alanine Aminotransferase 28 U/L (10-49); Albumin, Serum 4.4 gm/dL (3.5-5.0); Albumin/Globulin Ratio 1.6 (1.2-2.2); Alkaline Phosphatase 126 U/L (46-116); Anion Gap 7 (7-16); Aspartate Amino Transferase 18 U/L (0-34); BUN/Creatinine Ratio 10 Ratio (12-20); Bilirubin,Total 0.8 mg/dL (0.3-1.2); Blood Urea Nitrogen 8 mg/dL (9-23); Calcium 8.4 mg/dL (8.3-10.6); Calcium (Corrected) 8.4 mg/dL (8.5-10.1); Carbon Dioxide 27.8 mMol/L (20.0-31.0); Cardiac Risk Estimate 5.7 RATIO (3.7-5.6); Chloride 106 mMol/L (98-107); Cholesterol 201 mg/dL (132-200); Creatinine (Component) 0.8 mg/dL (0.6-1.3); Estimated Creatinine Clearance 98.3 mL/min (>60); Globulin 2.7 gm/dL (2.3-3.5); Glucose 224 mg/dL (74-106); HDL Cholesterol 35 mg/dL (40-60); LDL Cholesterol,Calculated 117 mg/dL (0-130); Osmolality,Calculated 286 (275-295); Sodium 141 mMol/L (136-145); Total Protein 7.1 gm/dL (5.7-8.2); Triglycerides 246 mg/dL (30-150); eGFR > 60 See Note
[2025-03-02] MEDS: POT PHOS 15 mMol in NS 250 ML 15 MMOL/250 ML BAG 62.5 MMOL IV ×2 (08:39→13:09)
--- NOTE | 2025-03-02 09:15 | PD.IMCONS ---
HPI Data of Consult Requesting Physician: Beitto Singh MD Primary Care Provider: Physician No Primary/Family Consult Narrative History of present illness: This is a 45-year-old female with significant past medical history of vaginal cancer in 2016, currently in remission, unknown about any other past medical history presented with chief complaint of fever, mild headache and palpitation Cardiology consulted for abnormal EKG EKG shows sinus tachycardia other carney non specific ST-T wave changes Doubt ACS cc:: cc: Betito Singh MD Meds Home Medications and Allergies Home Medications ?Medication ?Instructions ?Recorded ?Confirmed ?Type lorazepam 0.5 mg tablet 0.5 mg PO BID #0 tabs 07/07/16 02/09/19 History Allergies Allergy/AdvReac Type Severity Reaction Status Date / Time No Known Allergies Allergy Verified 03/01/25 19:04 Exam Vital Signs Temp Pulse Resp BP Pulse Ox O2 Del Method 98.7 F 84 16 113/71 99 Room Air 03/02/25 08:32 03/02/25 08:32 03/02/25 08:32 03/02/25 08:32 03/02/25 08:32 03/02/25 08:32 Routine HEENT Exam Head: Present normocephalic and atraumatic Eye: Present EOMI and PERRL ENT: Present mucous membranes moist Routine Neck Exam Neck: Present supple and trachea midline Routine Respiratory Exam Respiratory: Present chest non-tender, lungs clear, normal breath sounds and no resp distress Routine Cardiovascular Exam Cardiovascular: Present RRR Routine Abdominal Exam Abdominal: Present soft and normoactive bowel sounds Routine Extremities Exam Extremities: Present full ROM Routine Skin Exam Skin: Present intact, dry and warm Routine Neurological Exam Neurological: Present alert, oriented X3 and CN II-XII intact Routine Psychiatric Exam Psychiatric: Present normal affect and normal thought process Results Labs 03/02/25 04:46 03/02/25 04:46 Labs: Short CBC 03/01/25 03/02/25 Range/Units 19:40 04:46 WBC 17.2 H 12.4 H (3.6-11.0) Thou/mm3 Hgb 14.6 14.5 (12.0-16.0) g/dL Hct 40.8 41.5 (36.0-46.0) % Plt Count 300 241 D (140-440) Thou/mm3 BMP 03/01/25 03/02/25 19:40 04:46 Sodium 137 141 Potassium 3.1 L 3.0 L Chloride 102 106 Carbon Dioxide 23.2 27.8 BUN 13 8 L Creatinine 1.0 0.8 Glucose 275 H 224 H D Calcium 9.4 8.4 Cardiac Enzymes 03/01/25 Range/Units 19:40 Troponin I < 0.002 (0.0-0.045) ng/mL Liver Function 03/01/25 03/02/25 Range/Units 19:40 04:46 Total Bilirubin 0.5 0.8 (0.3-1.2) mg/dL AST 22 18 (0-34) U/L ALT 31 28 (10-49) U/L Alkaline Phosphatase 137 H 126 H (46-116) U/L Albumin 4.7 4.4 (3.5-5.0) gm/dL Urine 03/01/25 Range/Units 19:38 Urine Color Lt-Yellow (Lt Yel-Yel) Urine Clarity Clear (Clear/Hazy) Urine pH 5.5 (5.0-7.0) Ur Specific Luke 1.019 (1.001-1.035) Urine Protein Negative (Neg - Trace) Urine Glucose (UA) 4+ A (Negative) Assessment and Plan Assessment and plan (1) Hyperglycemia: Status: Acute (2) Hypokalemia: Status: Acute (3) Bacteremia: Status: Acute (4) Abnormal EKG: Status: Acute Additional Assessment & Plan Additional Plan: pt denies chest pain EKG non specific changes with sinus tachycardia troponin negative continue treat for sepsis
[2025-03-02 14:11] LABS: Phosphorous 2.5 mg/dL (2.4-5.1); Potassium 3.2 mMol/L (3.4-5.1)
[2025-03-02 14:29] LABS: Cocci Serology, IgM Negative (Negative)
--- NOTE | 2025-03-02 15:28 | ESPR_ITS ---
Documentation for date of: 03/02/25 Subjective Subjective Interval history: No overnight events. Patient seen examined at bedside, mild distress. Patient endorses fevers, generalized malaise, nausea. Denies fevers, chest pain, shortness of breath. Pending culture results. Continue empiric antibiotics. Exam Vital Signs Temp Pulse Resp BP Pulse Ox O2 Del Method 100.2 F 102 H 18 146/89 H 97 Room Air 03/02/25 10:43 03/02/25 10:43 03/02/25 10:43 03/02/25 10:43 03/02/25 10:43 03/02/25 10:43 Narrative Exam PE: Gen: Well-developed and well-nourished. HEENT: NCAT, PERRLA, EOMI, MMM, anicteric conjunctivae. CVS: normal S1 and S2. RRR. No M/R/G. Resp: CTA B/L. No rhonchi, rales, crackles or wheezing. Abd: soft, non-tender, non-distended. MSK: Good ROM in BUE & BLE. No edema or rash. Neuro: CN II-XII grossly intact. Strength 5/5 in BUE & BLE. Alert and oriented x3. Psych: appropriate mood and affect. Objective Labs 03/03/25 05:51 03/03/25 05:51 Labs: Laboratory Results - last 24 hr 03/01/25 03/01/25 03/01/25 19:38 19:40 23:07 WBC 17.2 H RBC 5.10 Hgb 14.6 Hct 40.8 MCV 80 MCH 28.6 MCHC 35.8 RDW Std Deviation 36.0 L Plt Count 300 Neut % (Auto) 87 H Lymph % (Auto) 8 L [place] % (Auto) 4 Eos % (Auto) 0 Baso % (Auto) 0 Neut # (Auto) 15.0 H Lymph # (Auto) 1.3 [place] # (Auto) 0.7 Eos # (Auto) 0.1 Baso # (Auto) 0.0 Immature Gran # (Auto) 0.09 H Absolute Nucleated RBC 0.00 Immature Gran % 1 H Nucleated RBC % 0 ESR 22 H PT 11.4 INR 1.0 APTT 27.1 D-Dimer 391 Sodium 137 Potassium 3.1 L Chloride 102 Carbon Dioxide 23.2 Anion Gap 12 BUN 13 Creatinine 1.0 Estim Creat Clear Calc 78.7 eGFR > 60 BUN/Creatinine Ratio [address] Glu mg/dL Hemoglobin A1c Calculated Osmolality 283 Lactic Acid 2.4 H 1.3 Calcium 9.4 Corrected Calcium 9.4 Phosphorus 1.9 L Magnesium 1.6 Total Bilirubin 0.5 AST 22 ALT 31 Alkaline Phosphatase 137 H Lactate Dehydrogenase 273 H Troponin I < 0.002 C-Reactive Prot, Quant 2.4 H B-Natriuretic Peptide < 20 Total Protein 7.5 Albumin 4.7 Globulin 2.8 Albumin/Globulin Ratio 1.7 Triglycerides Cholesterol LDL Cholesterol, Calc HDL Cholesterol Cholesterol/HDL Ratio Lipase 40 Procalcitonin 0.32 TSH 2.13 Free T4 1.09 HCG, Qual Negative Ur Collection Type Clean Catch Urine Color Lt-Yellow Urine Clarity Clear Urine pH 5.5 Ur Specific [place] 1.019 Urine Protein Negative Urine Glucose (UA) 4+ A Urine Ketones Trace Urine Blood Negative Urine Nitrite Negative Urine Bilirubin Negative Urine Urobilinogen (Auto) Negative Ur Leukocyte Esterase Negative Urine RBC 1 Urine WBC 2 Ur Squamous Epith Cells 1 Urine Bacteria None Urine Opiates Screen Negative Urine Fentanyl Screen Negative Ur Barbiturates Screen Negative U Amphetamin/Meth Scrn Negative U Benzodiazepines Scrn Negative U Cocaine Metab Screen Negative U Marijuana (THC) Screen Negative Ethyl Alcohol < 3.0 Coccidioides IgM Ab 03/02/25 03/02/25 03/02/25 00:00 04:46 13:14 WBC 12.4 H RBC 5.01 Hgb 14.5 Hct 41.5 MCV 83 MCH 28.9 MCHC 34.9 RDW Std Deviation 38.2 Plt Count 241 D Neut % (Auto) 85 H Lymph % (Auto) 10 [place] % (Auto) 5 Eos % (Auto) 0 Baso % (Auto) 0 Neut # (Auto) 10.5 H Lymph # (Auto) 1.2 [place] # (Auto) 0.6 Eos # (Auto) 0.0 Baso # (Auto) 0.0 Immature Gran # (Auto) 0.05 H Absolute Nucleated RBC 0.00 Immature Gran % 0 Nucleated RBC % 0 ESR PT INR APTT D-Dimer Sodium 141 Potassium 3.0 L 3.2 L Chloride 106 Carbon Dioxide 27.8 Anion Gap 7 BUN 8 L Creatinine 0.8 Estim Creat Clear Calc 98.3 eGFR > 60 BUN/Creatinine Ratio 10 L Glucose [address] Glu mg/dL 240 H Hemoglobin A1c 10.0 H Calculated Osmolality 286 Lactic Acid Calcium 8.4 Corrected Calcium 8.4 L Phosphorus 2.5 Magnesium 2.0 Total Bilirubin 0.8 AST 18 ALT 28 Alkaline Phosphatase 126 H Lactate Dehydrogenase Troponin I C-Reactive Prot, Quant B-Natriuretic Peptide Total Protein 7.1 Albumin 4.4 Globulin 2.7 Albumin/Globulin Ratio 1.6 Triglycerides 246 H Cholesterol 201 H LDL Cholesterol, Calc 117 HDL Cholesterol 35 L Cholesterol/HDL Ratio 5.7 H Lipase Procalcitonin TSH Free T4 HCG, Qual Ur Collection Type Urine Color Urine Clarity Urine pH Ur Specific [place] Urine Protein Urine Glucose (UA) Urine Ketones Urine Blood Urine Nitrite Urine Bilirubin Urine Urobilinogen (Auto) Ur Leukocyte Esterase Urine RBC Urine WBC Ur Squamous Epith Cells Urine Bacteria Urine Opiates Screen Urine Fentanyl Screen Ur Barbiturates Screen U Amphetamin/Meth Scrn U Benzodiazepines Scrn U Cocaine Metab Screen U Marijuana (THC) Screen Ethyl Alcohol Coccidioides IgM Ab Negative Quality Measures Quality Measures VTE prophylaxis Assessment & Plan Assessment Current Active Medications: Generic Name Dose Route Start Last Admin Trade Name Freq PRN Reason Stop Dose Admin Acetaminophen 650 mg 03/02/25 04:07 03/02/25 04:49 Acetaminophen 325 Mg Tablet PO 04/01/25 04:06 650 mg Q6H PRN Administration Fever >101.5 Acetaminophen 650 mg 03/02/25 04:07 Acetaminophen 325 Mg Tablet PO 04/01/25 04:06 Q6H PRN PAIN SCALE 1-3 (mild Dextrose 25 ml 03/02/25 04:07 Dextrose 50%-Water Inj 50 Ml Syringe IV 04/01/25 04:06 Q15MIN PRN BG 50-70 responsive npo pt Dextrose 50 ml 03/02/25 04:07 Dextrose 50%-Water Inj 50 Ml Syringe IV 04/01/25 04:06 Q15MIN PRN BG <50 OR BG <70 & pt unresponsive Enoxaparin Sodium 40 mg 03/02/25 09:00 03/02/25 10:08 Enoxaparin Sod Inj 40 Mg/0.4 Ml Syringe SC 03/16/25 08:59 Not Given QDAY ISREAL Glucagon 1 mg 03/02/25 04:07 Glucagon Inj 1 Mg Vial IM Q15MIN PRN BG <70, and no IV access Potassium Phosphate 15 mmol in 250 mls @ 62.5 mls/hr 03/02/25 07:30 03/02/25 13:09 Pot Phos 15 Mmol In Ns 250 Ml IV 03/02/25 15:29 62.5 mls/hr Q4H ISREAL Administration Ceftriaxone Sodium 1 gm/ 50 mls @ 100 mls/hr 03/03/25 09:00 Sodium Chloride IV 03/10/25 08:59 QDAY ISREAL Insulin Glargine 5 unit 03/03/25 09:00 Insulin Glargine (Lantus) 5 Unit/0.05 Ml (Per 5 Units) SC 04/02/25 08:59 QDAY ISREAL Insulin Human Lispro 0 unit 03/02/25 07:30 03/02/25 12:38 Insulin Lispro (Admelog) 1 Unit/0.01 Ml Unit SC 04/01/25 07:29 Not Given AC [facility] Protocol Plan 45-year-old female with significant past medical history of vaginal cancer in 2016, currently in remission, unknown about any other past medical history presented with chief complaint of fever, mild headache and palpitation that started on the morning of presentation. The patient was admitted to telemetry unit for further management of possible bacteremia. #Infection of unknown source Patient presented with chief complaint of fever, mild headache and palpitation for 1 day. She denied any sick contact, sore throat, nasal congestion, cough, chest pain, SOB, abdominal pain, any changes in bowel or bladder habit, denying any urinary frequency, burning micturition or dysuria. She also denied any nausea or vomiting, chills or leg swelling. Presented with pulse 140, temperature 102.8, white count 17.2, ESR 22, lactic acid 2.4, phosphorus 1.9, ALP 137, LDH 237, CRP 2.4, Pro-Reyes negative, TSH and free T4 WNL, UA revealed 4+ glucose otherwise negative, U tox negative, CXR negative for any pneumonia, EKG revealed sinus tachycardia with moderate ST depression, chest/abdomen/pelvis CT was negative, gallbladder ultrasound was negative. COVID-19, influenza A and B were negative. Patient received 2 L of IV normal saline bolus in the ED, given a seven 1 g p.o. x 1, ceftriaxone 1 g IV x 1, ondansetron 4 mg IV x 1 in the ED Patient was seen vancomycin and Zosyn on 03/02/2025, narrowed to ceftriaxone. - Cocci IgM negative, IgG pending - Admitted to telemetry unit - Ceftriaxone 1 g IV daily (started 03/02) - Blood and urine culture ordered, follow-up with results - Daily a.m. labs for CBC, CMP and electrolytes - Monitor closely #Palpitations Patient complains of palpitations for 1 day. Denies chest pain, no cardiac history. EKG unremarkable. Troponins negative. - Oncology consulted, appreciate recommendations - Telemetry #Hypokalemia #Hypophosphatemia Patient presented with potassium of 3.1 and phosphorus of 1.9. Received 40 mEq p.o. KCl in the ED Ordered 30 mmol of potassium phosphate IV x 1. Ordered magnesium sulfate 4 g IV x 1. - Daily a.m. labs for electrolytes, replete as needed DVT prophylaxis: Eliquis 40 Mg subcu daily Diet: Carb consistent diet CODE STATUS: Full code Lines: Peripheral IV Plan of care discussed with attending Dr. Singh. Zaire Jarrett MD PGY?1 Attending Provider Attestation/Addendum I reviewed labs, imaging, EKG, home medications and prior available records. Face to face evaluation was performed by me. I have personally examined the patient and discussed assessment and plan with the IM team. I reviewed the resident note and agree with the plan with exceptions as below. Acute febrile illness Possible urosepsis Acute UTI Hypokalemia Leukocytosis New onset diabetes mellitus Pulmonary nodules History of vaginal cancer Started IV ceftriaxone Follow-up blood and urine cultures Trend WBC Replete potassium as needed and follow BMP A1c is 10. Started sliding scale insulin CT chest showed 2 mm left upper lobe nodule. Follow-up cocci. Outpatient follow-up CT in 6 months
[2025-03-02] MEDS: POTASSIUM CHL 10 mEq IVPB 10 MEQ/100 ML BAG 100 MEQ IV (17:35)
[2025-03-02] MEDS: POTASSIUM CHLORIDE 10% 20 MEQ/15 ML UDC 40 MEQ PO (18:09)
[2025-03-02] MEDS: POTASSIUM CHLORIDE 20 mEq TABCR PO (18:30)
[2025-03-03] VITALS (8 sets, daily range): BP systolic 117–139; BP diastolic 66–94; PULSE 72–105; RESP 16–96; TEMP 35.9–36.9; O2SAT 95–98; BMI 27.2; BMI 27.4
[2025-03-03 00:27] LABS: Respiratory Syncytial Virus Ag Negative (Negative)
[2025-03-03 06:14] LABS: Basophils % (Auto) 0 % (0-2.5); Eosinophils # (Auto) 0.1 Thou/mm3 (0.0-0.5); Eosinophils % (Auto) 1 % (0-10); Hematocrit 38.3 % (36.0-46.0); Hemoglobin 13.7 g/dL (12.0-16.0); Immature Granulocytes % (Auto) 0 % (0-0); Immature Granulocytes Auto 0.04 Thou/mm3 (0.00-0.00); Lymphocytes # (Auto) 1.9 Thou/mm3 (1.0-4.8); Lymphocytes % (Auto) 19 % (10-50); Mean Corpuscular HGB Conc 35.8 g/dl (31.0-37.0); Mean Corpuscular Hemoglobin 28.8 pg (25.0-35.0); Mean Corpuscular Volume 81 fL (80-100); Monocytes # (Auto) 0.7 Thou/mm3 (0.0-0.8); Monocytes % (Auto) 7 % (0-12); Neutrophils % (Auto) 72 % (37-80); Nucleated Red Blood Cell % 0 /100 WBC (0); Platelet Count 223 Thou/mm3 (140-440); RDW Standard Deviation 37.2 fL (36.4-46.3); Red Blood Count 4.75 Miln/mm3 (4.00-5.20); White Blood Count 9.7 Thou/mm3 (3.6-11.0)
[2025-03-03 06:42] LABS: Alanine Aminotransferase 23 U/L (10-49); Albumin, Serum 4.2 gm/dL (3.5-5.0); Albumin/Globulin Ratio 1.7 (1.2-2.2); Alkaline Phosphatase 114 U/L (46-116); Anion Gap 6 (7-16); Aspartate Amino Transferase 17 U/L (0-34); BUN/Creatinine Ratio 7 Ratio (12-20); Bilirubin,Total 0.6 mg/dL (0.3-1.2); Blood Urea Nitrogen 5 mg/dL (9-23); Carbon Dioxide 23.8 mMol/L (20.0-31.0); Chloride 107 mMol/L (98-107); Creatinine (Component) 0.7 mg/dL (0.6-1.3); Estimated Creatinine Clearance 112.3 mL/min (>60); Globulin 2.5 gm/dL (2.3-3.5); Glucose 192 mg/dL (74-106); Magnesium 2.2 mg/dL (1.6-2.6); Osmolality,Calculated 276 (275-295); Phosphorous 2.3 mg/dL (2.4-5.1); Potassium 3.9 mMol/L (3.4-5.1); Sodium 137 mMol/L (136-145); Total Protein 6.7 gm/dL (5.7-8.2); eGFR > 60 See Note
[2025-03-03] MEDS: cefTRIAXone/D5w 1gm IV premix 1 GM/50 ML BAG IV (08:30)
[2025-03-03] MEDS: INSULIN LISPRO (AdmeLOG) 1 UNIT/0.01 ML UNIT SC ×3 (08:30→17:29)
[2025-03-03] MEDS: INSULIN GLARGINE (Lantus) 5 UNIT/0.05 ML (PER 5 UNITS) 3 UNIT SC (08:31)
[2025-03-03] MEDS: POT PHOS 15 mMol in NS 250 ML 15 MMOL/250 ML BAG 62.5 MMOL IV (08:31)
[2025-03-03] MEDS: ENOXAPARIN SOD INJ 40 MG/0.4 ML SYRINGE SC (08:31)
--- NOTE | 2025-03-03 12:34 | PC.SS ---
-SS met with patient at bedside. Patient is Israeli speaking only. Social Services Specialist line used during discussion. Patient was alert/oriented. She was able to verify demographics. Patient states she resides with her son. She is independent with ADL's Patient was admitted for fever and palpitations. Patient does not utilize any DME at home. She drives herself to appointments. PCP: Dr. Agustin @ [facility]. Last appt. was last week. Pharmacy: [facility] in [facility]. Alt medical decision maker: Sister in Nirmala tabares, . Transortation: family upon discharge alt medical decision maker: Sister in law
--- NOTE | 2025-03-03 13:32 | PD.RESPRO ---
Documentation for date of: 03/03/25 Subjective Subjective Interval history: No overnight events. Patient seen examined at bedside, resting comfortably. Denies fevers, chills, chest pain, nausea, vomiting. Patient A1c 10.0%, no known history of diabetes. Initiate insulin provide diabetic education. Pending culture results. Exam Vital Signs Temp Pulse Resp BP Pulse Ox O2 Del Method 96.7 F L 82 18 134/94 H 98 Room Air 03/03/25 12:00 03/03/25 12:00 03/03/25 12:00 03/03/25 12:00 03/03/25 12:00 03/03/25 12:00 Narrative Exam PE: Gen: Well-developed and well-nourished. HEENT: NCAT, PERRLA, EOMI, MMM, anicteric conjunctivae. CVS: normal S1 and S2. RRR. No M/R/G. Resp: CTA B/L. No rhonchi, rales, crackles or wheezing. Abd: soft, non-tender, non-distended. MSK: Good ROM in BUE & BLE. No edema or rash. Neuro: CN II-XII grossly intact. Strength 5/5 in BUE & BLE. Alert and oriented x3. Psych: appropriate mood and affect. Objective Labs 03/04/25 05:27 03/04/25 05:27 Labs: Laboratory Results - last 24 hr 03/02/25 03/02/25 03/02/25 04:46 13:14 21:46 WBC RBC Hgb Hct MCV MCH MCHC RDW Std Deviation Plt Count Neut % (Auto) Lymph % (Auto) [place] % (Auto) Eos % (Auto) Baso % (Auto) Neut # (Auto) Lymph # (Auto) [place] # (Auto) Eos # (Auto) Baso # (Auto) Immature Gran # (Auto) Absolute Nucleated RBC Immature Gran % Nucleated RBC % Sodium Potassium 3.2 L 4.0 D Chloride Carbon Dioxide Anion Gap BUN Creatinine Estim Creat Clear Calc eGFR BUN/Creatinine Ratio Glucose Calculated Osmolality Calcium Corrected Calcium Phosphorus 2.5 Magnesium Total Bilirubin AST ALT Alkaline Phosphatase Total Protein Albumin Globulin Albumin/Globulin Ratio Coccidioides IgM Ab Negative RSV Rapid 03/02/25 03/03/25 23:28 05:51 WBC 9.7 RBC 4.75 Hgb 13.7 Hct 38.3 MCV 81 MCH 28.8 MCHC 35.8 RDW Std Deviation 37.2 Plt Count 223 Neut % (Auto) 72 Lymph % (Auto) 19 [place] % (Auto) 7 Eos % (Auto) 1 Baso % (Auto) 0 Neut # (Auto) 7.0 Lymph # (Auto) 1.9 [place] # (Auto) 0.7 Eos # (Auto) 0.1 Baso # (Auto) 0.0 Immature Gran # (Auto) 0.04 H Absolute Nucleated RBC 0.00 Immature Gran % 0 Nucleated RBC % 0 Sodium 137 Potassium 3.9 Chloride 107 Carbon Dioxide 23.8 Anion Gap 6 L BUN 5 L Creatinine 0.7 Estim Creat Clear Calc 112.3 eGFR > 60 BUN/Creatinine Ratio 7 L Glucose 192 H Calculated Osmolality 276 Calcium 9.0 Corrected Calcium 9.0 Phosphorus 2.3 L Magnesium 2.2 Total Bilirubin 0.6 AST 17 ALT 23 Alkaline Phosphatase 114 Total Protein 6.7 Albumin 4.2 Globulin 2.5 Albumin/Globulin Ratio 1.7 Coccidioides IgM Ab RSV Rapid Negative Quality Measures Quality Measures VTE prophylaxis Assessment & Plan Assessment Current Active Medications: Generic Name Dose Route Start Last Admin Trade Name Freq PRN Reason Stop Dose Admin Acetaminophen 650 mg 03/02/25 04:07 03/02/25 17:35 Acetaminophen 325 Mg Tablet PO 04/01/25 04:06 650 mg Q6H PRN Administration Fever >101.5 Acetaminophen 650 mg 03/02/25 04:07 Acetaminophen 325 Mg Tablet PO 04/01/25 04:06 Q6H PRN PAIN SCALE 1-3 (mild Dextrose 25 ml 03/02/25 04:07 Dextrose 50%-Water Inj 50 Ml Syringe IV 04/01/25 04:06 Q15MIN PRN BG 50-70 responsive npo pt Dextrose 50 ml 03/02/25 04:07 Dextrose 50%-Water Inj 50 Ml Syringe IV 04/01/25 04:06 Q15MIN PRN BG <50 OR BG <70 & pt unresponsive Enoxaparin Sodium 40 mg 03/02/25 09:00 03/03/25 08:31 Enoxaparin Sod Inj 40 Mg/0.4 Ml Syringe SC 03/16/25 08:59 40 mg QDAY ISREAL Administration Glucagon 1 mg 03/02/25 04:07 Glucagon Inj 1 Mg Vial IM Q15MIN PRN BG <70, and no IV access Ceftriaxone Sodium/Dextrose 1 gm in 50 mls @ 100 mls/hr 03/03/25 09:00 03/03/25 08:30 Rocephin/D5w 1gm Iv Premix IV 03/10/25 08:59 100 mls/hr QDAY ISREAL Administration Insulin Glargine 3 unit 03/03/25 09:00 03/03/25 08:31 Insulin Glargine (Lantus) 5 Unit/0.05 Ml (Per 5 Units) SC 04/02/25 08:59 3 unit QDAY ISREAL Administration Insulin Human Lispro 0 unit 03/02/25 07:30 03/03/25 11:26 Insulin Lispro (Admelog) 1 Unit/0.01 Ml Unit SC 04/01/25 07:29 2 unit AC ISREAL Administration Protocol Plan 45-year-old female with significant past medical history of vaginal cancer in 2015, currently in remission, unknown about any other past medical history presented with chief complaint of fever, mild headache and palpitation that started on the morning of presentation. The patient was admitted to telemetry unit for further management of possible bacteremia. #Fever of unknown origin Patient presented with chief complaint of fever, mild headache and palpitation for 1 day. She denied any sick contact, sore throat, nasal congestion, cough, chest pain, SOB, abdominal pain, any changes in bowel or bladder habit, denying any urinary frequency, burning micturition or dysuria. She also denied any nausea or vomiting, chills or leg swelling. Presented with pulse 140, temperature 102.8, white count 17.2, ESR 22, lactic acid 2.4, phosphorus 1.9, ALP 137, LDH 237, CRP 2.4, Pro-Reyes negative, TSH and free T4 WNL, UA revealed 4+ glucose otherwise negative, U tox negative, CXR negative for any pneumonia, EKG revealed sinus tachycardia with moderate ST depression, chest/abdomen/pelvis CT was negative, gallbladder ultrasound was negative. COVID-19, influenza A and B were negative. Patient received 2 L of IV normal saline bolus in the ED, given a seven 1 g p.o. x 1, ceftriaxone 1 g IV x 1, ondansetron 4 mg IV x 1 in the ED Patient was seen vancomycin and Zosyn on 03/02/2025, narrowed to ceftriaxone. Urine culture grew contaminant. Blood cultures negative x 24 hours. Cocci IgM and IgG negative. - Admitted to telemetry unit - Ceftriaxone 1 g IV daily (started 03/02) - Blood culture pending, follow-up - Daily a.m. labs for CBC, CMP and electrolytes - Monitor closely - ID consulted, appreciate recommendations #Diabetes, newly diagnosed Patient had elevated blood glucose. HA1C 10%. Patient has no previous known history of diabetes. - Diabetic education provided - Insulin sliding scale - Lantus 3 units daily #Palpitations Patient complains of palpitations for 1 day. Denies chest pain, no cardiac history. EKG unremarkable. Troponins negative. - Cardiology consulted, appreciate recommendations - Telemetry #Pulmonary nodule Incidental finding of 2 mm pulmonary nodule on CT scan. Cocci negative. - Outpatient follow-up, recommend CT scan in 6 months. #Hypokalemia #Hypophosphatemia Patient presented with potassium of 3.1 and phosphorus of 1.9. Received 40 mEq p.o. KCl in the ED Ordered 30 mmol of potassium phosphate IV x 1. Ordered magnesium sulfate 4 g IV x 1. - Daily a.m. labs for electrolytes, replete as needed DVT prophylaxis: Lovenox Diet: Carb consistent diet CODE STATUS: Full code Lines: Peripheral IV Plan of care discussed with attending Dr. Singh. Zaire Jarrett MD PGY?1 Attending Provider Attestation/Addendum I reviewed labs, imaging, EKG, home medications and prior available records. Face to face evaluation was performed by me. I have personally examined the patient and discussed assessment and plan with the IM team. I reviewed the resident note and agree with the plan with exceptions as below. Acute febrile illness Possible urosepsis Acute UTI Hypokalemia Leukocytosis New onset diabetes mellitus Pulmonary nodules History of vaginal cancer Started IV ceftriaxone Follow-up blood and urine cultures: Negative to date Trend WBC: Downtrending Replete potassium as needed and follow BMP A1c is 10. Diagnosed with new onset diabetes. Started sliding scale insulin Discussed with pharmacist and dietitian: Provided diabetes education CT chest showed 2 mm left upper lobe nodule. Follow-up cocci. Outpatient follow-up CT in 6 months
[2025-03-03 14:15] LABS: Cocci Serology, IgG Negative (Negative)
[2025-03-04] VITALS (7 sets, daily range): BP systolic 123–133; BP diastolic 84–91; PULSE 52–92; RESP 17–97; TEMP 36.3–37.2; O2SAT 96–99; BMI 27.4
[2025-03-04 06:26] LABS: Basophils % (Auto) 1 % (0-2.5); Eosinophils # (Auto) 0.2 Thou/mm3 (0.0-0.5); Eosinophils % (Auto) 3 % (0-10); Hematocrit 43.5 % (36.0-46.0); Hemoglobin 15.2 g/dL (12.0-16.0); Immature Granulocytes % (Auto) 0 % (0-0); Immature Granulocytes Auto 0.03 Thou/mm3 (0.00-0.00); Lymphocytes # (Auto) 2.1 Thou/mm3 (1.0-4.8); Lymphocytes % (Auto) 30 % (10-50); Mean Corpuscular HGB Conc 34.9 g/dl (31.0-37.0); Mean Corpuscular Hemoglobin 28.4 pg (25.0-35.0); Mean Corpuscular Volume 81 fL (80-100); Monocytes # (Auto) 0.5 Thou/mm3 (0.0-0.8); Monocytes % (Auto) 7 % (0-12); Neutrophils # (Auto) 4.1 Thou/mm3 (1.8-7.7); Neutrophils % (Auto) 59 % (37-80); Nucleated Red Blood Cell % 0 /100 WBC (0); Platelet Count 270 Thou/mm3 (140-440); RDW Standard Deviation 37.3 fL (36.4-46.3); Red Blood Count 5.35 Miln/mm3 (4.00-5.20); White Blood Count 6.9 Thou/mm3 (3.6-11.0)
[2025-03-04 07:03] LABS: Alanine Aminotransferase 29 U/L (10-49); Albumin, Serum 4.8 gm/dL (3.5-5.0); Albumin/Globulin Ratio 1.6 (1.2-2.2); Alkaline Phosphatase 124 U/L (46-116); Anion Gap 11 (7-16); Aspartate Amino Transferase 27 U/L (0-34); BUN/Creatinine Ratio 11 Ratio (12-20); Bilirubin,Total 0.6 mg/dL (0.3-1.2); Blood Urea Nitrogen 9 mg/dL (9-23); Calcium 9.7 mg/dL (8.3-10.6); Calcium (Corrected) 9.7 mg/dL (8.5-10.1); Carbon Dioxide 23.9 mMol/L (20.0-31.0); Chloride 106 mMol/L (98-107); Creatinine (Component) 0.8 mg/dL (0.6-1.3); Estimated Creatinine Clearance 98.8 mL/min (>60); Glucose 177 mg/dL (74-106); Magnesium 2.2 mg/dL (1.6-2.6); Osmolality,Calculated 283 (275-295); Phosphorous 3.5 mg/dL (2.4-5.1); Potassium 3.6 mMol/L (3.4-5.1); Sodium 141 mMol/L (136-145); Total Protein 7.8 gm/dL (5.7-8.2); eGFR > 60 See Note
[2025-03-04] MEDS: INSULIN LISPRO (AdmeLOG) 1 UNIT/0.01 ML UNIT SC ×2 (08:23→18:16)
[2025-03-04] MEDS: cefTRIAXone/D5w 1gm IV premix 1 GM/50 ML BAG IV (08:25)
[2025-03-04] MEDS: INSULIN GLARGINE (Lantus) 5 UNIT/0.05 ML (PER 5 UNITS) 3 UNIT SC (08:27)
[2025-03-04] MEDS: ENOXAPARIN SOD INJ 40 MG/0.4 ML SYRINGE SC (08:28)
--- NOTE | 2025-03-04 09:43 | PC.CC ---
[Late Entry] 03/03/25 - DM and insulin injection training provided by Arti, pharmacy customer care specialist. Patient is interested in CGM. PA approved for [employer] Plus Sensors #2. DAVID Anders, to place sample and assist with setup.
--- NOTE | 2025-03-04 15:28 | ESDS_ITS ---
Planned Discharge Date 03/04/25 DS: Providers Provider Date of admission: 03/02/25 04:07 Primary care physician: Physician No Primary/Family Admitting Provider: Arcadio Zavala DO Attending Provider on Admission: Betito Singh MD Consults: 03/01/25 22:15 Consult to Cardiology Stat Comment: Consulting Provider: Berry Issa Instructions: Elevated ST 03/02/25 20:57 [facility] Referral - Transportation Routine Comment: Positive screening for transportation needs. 03/02/25 23:16 Referral Infection Control Routine Comment: Reason for Infection Control Referral: Multiple ABX (>2) 03/03/25 08:16 Referral Registered Dietitian Routine Comment: Attending Provider on DC: Betito Singh MD Discharging Provider: Zaire Jarrett MD DS: Diagnosis Problem List Completed Was Problem List Reviewed/Reconciled?: Yes Hospital Course Hospital Course Hospital course: 45-year-old female with significant past medical history of vaginal cancer in 2016, currently in remission, unknown about any other past medical history presented with chief complaint of fever, mild headache and palpitation that started on the morning of presentation, admitted for fever of unknown origin. All cultures were negative, patient showed rapid improvement with supportive care antibiotics, suspect a viral infection. During stay, patient was diagnosed with diabetes, HA1C 10%. Patient has no known history of diabetes. Diabetic education was provided, patient started on long-acting insulin. Patient also had incidental finding of pulmonary nodule, cocci testing negative. Patient medically stable and cleared for discharge. Discharge plan: You have been started on the following medications: - Metformin 500 mg twice daily with meals - Basaglar: 5 units every night, injected You are being sent with prescription for glucose test strips, insulin needles, glucometer. Please follow-up with your primary doctor within 2 weeks. Please return to the ED if you develop new or worsening symptoms, including confusion, dizziness, weakness, blurry vision. Diagnoses: #Fever of unknown origin #Diabetes, newly diagnosed #Palpitations #Pulmonary nodule #Hypokalemia #Hypophosphatemia Plan of care discussed with attending Dr. Singh. Zaire Jarrett MD PGY?1 Status at Discharge Overall status at discharge: patient is back to baseline Time Spent with Patient Time attestation: Total time spent providing and/or coordinating discharge services: Time spent: Greater than 30 minutes Exam Vital Signs Temp Pulse Resp BP Pulse Ox O2 Del Method 98.9 F 52 L 17 127/91 H 96 Room Air 03/04/25 12:00 03/04/25 12:00 03/04/25 12:00 03/04/25 12:00 03/04/25 12:00 03/04/25 12:00 Narrative Exam PE: Gen: Well-developed and well-nourished. HEENT: NCAT, PERRLA, EOMI, MMM, anicteric conjunctivae. CVS: normal S1 and S2. RRR. No M/R/G. Resp: CTA B/L. No rhonchi, rales, crackles or wheezing. Abd: soft, non-tender, non-distended. MSK: Good ROM in BUE & BLE. No edema or rash. Neuro: CN II-XII grossly intact. Strength 5/5 in BUE & BLE. Alert and oriented x3. Psych: appropriate mood and affect. Discharge Plan Plan Patient Disposition: HOME (Self Care) Patient condition on transfer: Stable Care Plan Goals: You have been started on the following medications: - Metformin 500 mg twice daily with meals - Basaglar: 5 units every night, injected You are being sent with prescription for glucose test strips, insulin needles, glucometer. Please follow-up with your primary doctor within 2 weeks. Please return to the ED if you develop new or worsening symptoms, including confusion, dizziness, weakness, blurry vision. Prescriptions/Referrals Prescriptions/Med Rec: New metformin 500 mg tablet 500 mg PO BIDWMEAL 30 Days Qty: 60 0RF insulin glargine [Basaglar KwikPen U-100 Insulin] 100 unit/mL (3 mL) insulin pen 5 unit subcut QPM 30 Days Qty: 1.5 0RF (DME) needle (disp) 32 gauge 32 gauge x 5/16 needle See Rx Instructions .Route Qty: 100 0RF Rx Instructions: As directed (DME) lancets [Lancets,Ultra Thin] Misc See Rx Instructions .Route Qty: 100 0RF Rx Instructions: As directed (DME) Accutrend Glucose test strips Strip See Rx Instructions .Route Qty: 50 1RF Rx Instructions: As directed (DME) pen needle, diabetic [Pen Needle] 29 gauge x 1/2 needle See Rx Instructions .Route Qty: 100 0RF Rx Instructions: Inject once daily (DME) FreeStyle Li 3 Plus Sensor Device See Rx Instructions .Route Qty: 1 2RF Rx Instructions: As directed Continued lorazepam 0.5 MG tablet 0.5 mg PO BID Qty: 0 Discontinued ibuprofen 800 mg tablet 800 mg PO BID Qty: 60 0RF nitrofurantoin monohyd/m-cryst 100 mg capsule 100 mg PO Q12H Qty: 14 0RF Rx Instructions: must administer with a meal/food ibuprofen 800 mg tablet 800 mg PO TID PRN (Reason: pain) Qty: 30 0RF ibuprofen 800 mg tablet 800 mg PO TID PRN (Reason: pain) Qty: 30 0RF Referrals: No Primary/Family,Physician [Primary Care Provider] - Outpatient Orders (i.e. Home Health, Labs, Imaging): DME: Glucometer (Routine) Location: None Selected Ordered By: Zaire Jarrett Patient/Caregiver Discharge Instructions Discharge Activity: activity as tolerated Education Materials: High Blood Sugar (Hyperglycemia), How to Check Your Blood Sugar, Glucose Check Steps, ED Diabetes with High Blood Sugar Print Language: Icelandic Stand Alone Forms: [employer] Info., Patient Portal Info Letter Discharge Order Discharge Orders: Discharge (Routine); Ordered 03/04/25 Ordered By: Zaire Jarrett Quality Discharge Quality Measures VTE prophylaxis MD Attestestation MD Attestation I reviewed labs, imaging, EKG, home medications and prior available records. Face to face evaluation was performed by me. I have personally examined the patient and discussed assessment and plan with the IM team. I reviewed the resident note and agree with the plan with exceptions as below. Acute febrile illness, Likely viral Possible urosepsis, ruled out Hypokalemia Leukocytosis New onset diabetes mellitus Pulmonary nodules History of vaginal cancer Stopped antibiotics Follow-up blood and urine cultures: Negative to date Trend WBC: Downtrending Monitor potassium as outpatient A1c is 10. Diagnosed with new onset diabetes. Will discharge on glargine 5 units plus metformin 500 mg. Continue to monitor fingersticks as outpatient Discussed with pharmacist and dietitian: Provided diabetes education CT chest showed 2 mm left upper lobe nodule. Follow-up cocci: Negative. Outpatient follow-up CT in 6 months Time spent is 40 minutes. More than 50% of the time was spent on patient education and coordination of care.
== END 2025-03-04 18:18 | disposition home or self-care (01) | DRG 723 ==
LOC: SERX 03-02 03:31 → SERHOLD 03-02 04:15 → S2NX 03-02 20:04 → S3NX 03-04 00:39
PROVIDERS: Physician Assistant; Student in an Organized Health Care Education/Training Program; Admitting Provider Student in an Organized Health Care Education/Training Program; Emergency Provider Emergency Medicine; Visit Provider Student in an Organized Health Care Education/Training Program
DX: B34.9 Viral infection, unspecified (principal); E87.6 Hypokalemia; E83.39 Other disorders of phosphorus metabolism; N13.6 Pyonephrosis; E11.65 Type 2 diabetes mellitus with hyperglycemia; Z90.710 Acquired absence of both cervix and uterus; R00.2 Palpitations; R91.1 Solitary pulmonary nodule; Z85.41 Personal history of malignant neoplasm of cervix uteri; E87.20 Acidosis, unspecified; Z79.4 Long term (current) use of insulin; Z92.21 Personal history of antineoplastic chemotherapy; Z92.3 Personal history of irradiation
CPT/HCPCS: 36415; 71046; 71260; 74177; 76705; 80053; 80061; 80307; 80320; 81001; 83036; 83605; 83615; 83690; 83735; 83880; 84100; 84132; 84145; 84439; 84443; 84484; 84703; 85025; 85379; 85610; 85652; 85730; 86140; 86331; 86635; 87040; 87081; 87086; 87400; 87634; 87811; 93005; 96361; 96365; 96366; 96367; 96368; 96375; 99285; A4649; J0696; J1650; J1815; J1885; J2405; J2543; J3370; J3475; J3480; J7030; J7050; J7999; Q9967; A9270; G0480

== ENCOUNTER → 2025-08-25 | Outpatient (CLI) | payer MEDICAID, SELFPAY ==
--- NOTE | 2025-08-25 14:45 | XR_ITS ---
Examination: Screening digital mammography, bilateral Computer aided detection 3-D breast Tomosynthesis, bilateral Date and time of exam: 08/25/2025, 3:00 p.m. Comparisons: August 2022 through July 2024 Indications: Screening Technique: Nonmagnified MLO, CC views of the breasts to been obtained, reconstructed from 3-D Tomosynthesis images. R2 computer aided detection program utilized for evaluation of suspicious masses and/or abnormal calcifications. 3-D Tomosynthesis images obtained. Technologist: Findings: The breasts are heterogeneously dense, which may obscure small masses. Multiple right post biopsy marker clips. No evidence of abnormal masses or suspicious calcifications. Impression: No mammographic abnormality. Ultrasound evaluation right breast recommended as per 05/05/2024 recommendations. BI-RADS category 0: Incomplete assassment; need additional imaging evaluation .
== END | disposition home or self-care (01) ==
LOC: CDIM 14:48
PROVIDERS: Referring Provider Physician Assistant; Visit Provider Physician Assistant
DX: Z12.31 Encounter for screening mammogram for malignant neoplasm of breast (principal); R92.8 Other abnormal and inconclusive findings on diagnostic imaging of breast
CPT/HCPCS: 77063; 77067